=== PATIENT | male | born 1965 | race Hispanic/Latino ===

== ENCOUNTER 2017-12-28 22:48 | Emergency (ER) | payer OTHER ==
[2017-12-28 22:52] VITALS: BP 120/79
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
== END 2017-12-29 01:16 ==
LOC: ERH 22:48
DX: S01.112A Laceration without foreign body of left eyelid and periocular area, initial encounter (principal); Y04.0XXA Assault by unarmed brawl or fight, initial encounter; Y93.9 Activity, unspecified; Y92.9 Unspecified place or not applicable